=== PATIENT | female | born 1965 | race Caucasian/White ===

== ENCOUNTER 2019-09-08 23:31 | Inpatient (IN) | payer OTHER ==
[~2019-09-08] VITALS: Ht 167.6 cm; Wt 86.6 kg
--- NOTE | ~2019-09-08 | PROC ---
[address] [address] PROCEDURE REPORT Name: ROSA ELENA JOHNSON Room: [address] IN M.R.#: [id number] Admission: 09/09/19 Attend Phys: Geni Dawkins Discharge: 09/11/19 Date of : 67 Report #: [id number] THIS REPORT FOR: //name// cc: Steve Marr MD, Christopher J. MD ~ THIS REPORT FOR: //name// For GI report, please see the Provation report in Perceptive 7 content. By: [facility]2Medical Records Staff [facility] /LINO
[2019-09-08 23:38] VITALS: BP 115/51
[2019-09-08] MEDS ORDERED: ASA81BEC PO (23:41)
[2019-09-08 23:55] LABS: ABSOLUTE EOSINOPHILS 0.1 thou/uL (0.0-0.7); ABSOLUTE LYMPHOCYTES 1.5 thou/uL (0.8-5.3); ABSOLUTE MONOCYTES 0.4 thou/uL (0.0-1.2); ABSOLUTE NEUTROPHILS 3.5 thou/uL (1.6-8.1); BASOPHILS 0.6 %; EOSINOPHILS 1.6 %; LYMPHOCYTES 26.8 %; MCH 20.6 pg (26.0-34.0); MCHC 30.1 g/dL (28.0-37.0); MCV 68.5 fL (80.0-100.0); MPV 6.4 fl. (7.2-11.1); NUCLEATED RBCS 0 /100WBC; PLATELET COUNT* 332 thou/uL (150-400); RBC 1.56 mil/uL (4.20-5.00); WBC 5.4 thou/uL (4.0-11.0)
[2019-09-09] VITALS (13 sets, daily range): BP systolic 112–160; BP diastolic 46–89
[2019-09-09] LABS: HEMOGLOBIN 3.2 gm/dL (12.0-15.0)
[2019-09-09 00:01] LABS: HEMATOCRIT 10.7 % (37.0-47.0)
[2019-09-09 00:09] LABS: CALCIUM 8.4 mg/dL (8.5-10.1); CREATININE 0.8 mg/dL (0.6-1.3); POTASSIUM 3.5 mmol/L (3.5-5.1)
[2019-09-09 00:14] LABS: ALBUMIN 3.1 g/dL (3.4-5.0); TOTAL BILIRUBIN 0.2 mg/dL (<0.1-1.0); TOTAL PROTEIN 6.8 g/dL (6.4-8.2)
[2019-09-09 01:31] LABS: INR 1.2
[2019-09-09 02:56] LABS: HYPOCHROMASIA 3+; MICROCYTES 3+
[2019-09-09 02:57] LABS: ANISOCYTOSIS 1+; PLATELET ESTIMATE ADEQUATE
[2019-09-09 05:42] LABS: % SATURATION 5 % (20-39); IRON 23 ug/dL (50-175)
--- NOTE | 2019-09-09 06:52 | NUR ---
RECEIVED REPORT FROM ED NURSE GUNNER. PATIENT BROUGHT TO UNIT AT 0310. ASSESSMENT COMPLETED CHARTED. PATIENT ORIENTED TO UNIT, ROOM, BED, CALL-LIGHT, AND HOSPITAL POLICY. BED LOCKED AND IN LOWEST POSITION. FALL PRECAUTIONS IN PLACE FOR PATIENT SAFETY. CARDIAC MONITORING IN PLACE. CLWR.
[2019-09-09 10:24] LABS: HEMATOCRIT 15.8 % (37.0-47.0)
--- NOTE | 2019-09-09 14:47 | NUR ---
ICU rounds: HBG at 2, transfuse today. GI seeing. CM to attempt to assess tomorrow.
[2019-09-09 14:48] LABS: HEMATOCRIT 19.4 % (37.0-47.0); HEMOGLOBIN 6.2 gm/dL (12.0-15.0)
[2019-09-09 14:55] LABS: CALCIUM 7.6 mg/dL (8.5-10.1); CREATININE 0.6 mg/dL (0.6-1.3); POTASSIUM 3.9 mmol/L (3.5-5.1)
--- NOTE | 2019-09-09 18:36 | NUR ---
PT ADVANCED TOWARD GOAL OVERALL PLEASANT HAS RECEIVED 5 UNITS OF BLOOD WITH AN IRON TRANSFUSION EGD SCHEDULED FOR TOMORROW ASSESSED BY GOSIA LOAIZA TO [facility] PT RESTING IN BED
[2019-09-09 18:53] LABS: HEMOGLOBIN 7.5 gm/dL (12.0-15.0)
[2019-09-10] VITALS (56 sets, daily range): BP systolic 97–169; BP diastolic 43–89
[2019-09-10 04:15] LABS: ABSOLUTE BASOPHILS 0.1 thou/uL (0.0-0.2); ABSOLUTE EOSINOPHILS 0.1 thou/uL (0.0-0.7); ABSOLUTE LYMPHOCYTES 0.8 thou/uL (0.8-5.3); ABSOLUTE MONOCYTES 0.5 thou/uL (0.0-1.2); ABSOLUTE NEUTROPHILS 5.2 thou/uL (1.6-8.1); BASOPHILS 0.8 %; EOSINOPHILS 1.4 %; HEMATOCRIT 21.2 % (37.0-47.0); LYMPHOCYTES 12.3 %; MCH 24.9 pg (26.0-34.0); MCHC 32.9 g/dL (28.0-37.0); MPV 6.7 fl. (7.2-11.1); NUCLEATED RBCS 0 /100WBC; PLATELET COUNT* 283 thou/uL (150-400); POLYS 77.5 %; RDW-CV 22.6 % (10.5-14.5); WBC 6.7 thou/uL (4.0-11.0)
[2019-09-10 04:16] LABS: MCV 75.8 fL (80.0-100.0)
[2019-09-10 04:32] LABS: CALCIUM 7.7 mg/dL (8.5-10.1); CREATININE 0.7 mg/dL (0.6-1.3); POTASSIUM 3.9 mmol/L (3.5-5.1)
[2019-09-10 05:56] LABS: ANISOCYTOSIS 1+; POIKILOCYTOSIS 1+
[2019-09-10 05:57] LABS: POLYCHROMASIA Occasional
--- NOTE | 2019-09-10 06:11 | NUR ---
VITALS STABLE, AFEBRILE. PT REMAINS ON 2L O2 PER NC. PT COMPLAINS OF NAUSEA, PARTIAL RELIEF FROM MEDS. BMX1, SMALL, UOP 3200CC. ABLE TO GET UP TO THE COMMODE WITH NO DIFFICULTY. PT DENIES PAIN, SOB, DIZZINESS. ABLE TO SLEEP ON AND OFF THROUGH THE NIGHT. REMAINED NPO AFTER MIDNIGHT. CALL LIGHT WITHIN REACH. ABLE TO TURN SELF IN BED. WILL CONTINUE MONITORING.
--- NOTE | 2019-09-10 09:46 | NUR ---
RITA REMIANS A&O X 4, PLEASANT AND COOPERATIVE WITH CARES. DENIES PAIN. PATIENT STATES THAT SHE IS UNSURE IF SHE IS FEELING BETTER POST TRANSFUSION. HGB CONTINUES TO BE MONITORED. PATIENT STATES THAT SHE IS READY TO GO HOME. DR FLORES STATES THAT IF PATIENT'S HGB REMAINS STEADY THROUGH TOMORROW SHE MAYBE ABLE TO DISCHARGE TOMORROW. NO S/S OF BLEEDING. SOB WITH EXCERTION NOTED. NO FURTHER CONCERNS AT THIS TIME. WILL CONTINUE TO MONITOR AND CARE PER PLAN OF CARE.
--- NOTE | 2019-09-10 10:37 | NUR ---
PATIENT LEFT UNIT FOR GI LAB FOR EGD
--- NOTE | 2019-09-10 12:00 | NUR ---
ICU rounds: Pt transfused 5 units of blood yesterday. EGD today, biopsy taken, 2 new meds prescribed per GI, GI cleared. Per , anticipate dc tomorrow. Pt is A&O. Independent. Continues to work. No DME. No hx of or SNF. Goal is home at [facility]. Following.
[2019-09-10 12:13] LABS: HEMATOCRIT 21.2 % (37.0-47.0); HEMOGLOBIN 6.9 gm/dL (12.0-15.0); MCH 24.6 pg (26.0-34.0); MCHC 32.4 g/dL (28.0-37.0); MCV 75.7 fL (80.0-100.0); MPV 6.8 fl. (7.2-11.1); NUCLEATED RBCS 0 /100WBC; PLATELET COUNT* 291 thou/uL (150-400); WBC 6.4 thou/uL (4.0-11.0)
[2019-09-10 12:41] LABS: ABSOLUTE BASOPHILS 0.1 thou/uL (0.0-0.2); ABSOLUTE MONOCYTES 0.1 thou/uL (0.0-1.2); ABSOLUTE NEUTROPHILS 5.3 thou/uL (1.6-8.1); ANISOCYTOSIS 2+; PLATELET ESTIMATE ADEQUATE
--- NOTE | 2019-09-10 16:30 | NUR ---
PATIENT RETURNED FROM AFTER HAVING AN EGD AT 1055. PATIENT WAS STILL SLEEPING AT THIS TIME. PATIENT WAS PLACED BACK ON ALL MONITORS AND MONITORED CLOSELY FOR 1 HOUR. PATIENT TOLERATED PROCEDURE WELL. 1 UNIT PRBC TRANSFUSED AND PATIENT TOLERATED WELL. NO S/S OF REACTION OR SOB. PATIENT CURRENTLY RESTING AT THIS TIME. NO FURTHER CONCERNS AT THIS TIME. WILL CONTINUE TO MONITOR AND CARE PER PLAN OF CARE.
--- NOTE | 2019-09-10 19:39 | NUR ---
PATIENT TO ROOM 213 AT 1730. REPORT RECEIVED FROM ICU NURSE.
[2019-09-11 04:00] VITALS: BP 104/40; BP 110/36
[2019-09-11 04:50] LABS: ABSOLUTE BASOPHILS 0.1 thou/uL (0.0-0.2); ABSOLUTE EOSINOPHILS 0.2 thou/uL (0.0-0.7); ABSOLUTE LYMPHOCYTES 1.5 thou/uL (0.8-5.3); ABSOLUTE MONOCYTES 0.4 thou/uL (0.0-1.2); ABSOLUTE NEUTROPHILS 4.3 thou/uL (1.6-8.1); EOSINOPHILS 2.5 %; HEMATOCRIT 24.3 % (37.0-47.0); HEMOGLOBIN 7.9 gm/dL (12.0-15.0); LYMPHOCYTES 23.3 %; MCH 25.4 pg (26.0-34.0); MCHC 32.7 g/dL (28.0-37.0); MCV 77.7 fL (80.0-100.0); MONOCYTES 6.8 %; MPV 7.2 fl. (7.2-11.1); NUCLEATED RBCS 0 /100WBC; PLATELET COUNT* 279 thou/uL (150-400); POLYS 66.4 %; RBC 3.13 mil/uL (4.20-5.00); RDW-CV 21.9 % (10.5-14.5); WBC 6.4 thou/uL (4.0-11.0)
--- NOTE | 2019-09-11 05:26 | NUR ---
ASSUMED CARE OF PT AFTER REPORT AT 1930. PT A&OX4. VSS. PHYSICAL ASSESSMENT COMPLETED AND CHARTED. PT ON RA. PT TRACING SR ON TELE. PT UPADLIB TO RESTROOM. PT DENIES ANY PAIN OR DISCOMFORT. CALL LIGHT WITHIN REACH.
[2019-09-11 11:51] VITALS: BP 139/64
[2019-09-11] MEDS ORDERED: PROTONIX40 M1 PO (11:58)
[2019-09-11] MEDS ORDERED: CARAFATE 1 GM TA1 G1 PO (11:58)
[2019-09-11 13:00] VITALS: BP 139/64
--- NOTE | 2019-09-11 13:34 | NUR ---
ORDER RECEIVED TO DISCHARGE PATIENT HOME TO SELF CARE. MED REC, MEDICATIPN EDUCATION, STROKE EDUCATION AND NEE DFOR FOOLLOW UP EGD IN 2 MONTHS WITH [facility] AND WITH HER PCP IN 2 WEEKS. IV AND TELEMETRY PACK REMOVED. LULI IS AMBULATORY. ROOM AIR. AOX4. SHE WAS TAKEN BY WHEELCHAIR TO AWAITING CAR BY STAFF. DC TIME OF 13:15.
--- NOTE | 2019-09-11 14:07 | PATH ---
[address] [address] PATHOLOGY RPT PROCEDURE Name: ROSA ELENA JOHNSON Room: [address] IN M.R.#: [id number] Admission: 09/09/19 Date of : 67 Discharge: 09/11/19 Report #: [id number] Path Case #: [id number] [facility] Accession Number: [id number] . 01 Material submitted: . stomach - SUPERFICIAL GASTRIC LESIONS BIOPSY . 01 Clinician provided ICD-10: D62 E44.0 . 01 Clinical history: . Acute posthemorrhagic anemia, moderate protein calorie malnutrition. . 02 Diagnosis: Superficial gastric lesion(s), biopsy: - Severe chronic active gastritis with scattered Helicobacter pylori organisms, negative for granulomas and dysplasia. (NEGAR:pit 09/11/2019) . Special stain: H. pylori immuno OLT 09/11/2019 1133 Local . 02 Electronically signed: . Pramod Estrada MD, Pathologist NPI- [id number] . 01 Gross description: . Received in formalin labeled "Rosa Elena Johnson, superficial gastric lesion biopsy" is a 0.4 x 0.3 x 0.2 cm fragment of alvares-brown soft tissue. The specimen is submitted entirely in A1. ([facility]; 09/10/2019) [facility] 09/10/2019 1646 Local . 02 Pathologist provided ICD-10: K29.50, B96.81 . 02 CPT . 930353, P74401 Specimen Comment: A courtesy copy of this report has been sent to [phone] Specimen Comment: [phone] Specimen Comment: Report sent to ,DR VILLALTA / DR FLORES Performed at: [address] [id number] MD Ronaldo Diaz MD Phone: [phone] Performed at: [address] [address] PATHOLOGY RPT PROCEDURE Name: ROSA ELENA JOHNSON Room: [address] IN M.R.#: [id number] Admission: 09/09/19 Date of : 67 Discharge: 09/11/19 Report #: [id number] Path Case #: [id number] [address] [place] [id number] MD Pramod Estrada MD Phone: [phone]
--- NOTE | 2019-09-25 13:50 | CON ---
[address] [address] CONSULTATION Name: ROSA ELENA JOHNSON Yessy Room: [address] IN M.R.#: [id number] Admission: 09/09/19 Attend Phys: Geni Dawkins Discharge: 09/11/19 Date of : 67 Report #: [id number] THIS REPORT FOR: //name// cc: Steve Marr MD, Christopher J. MD ~ THIS REPORT FOR: //name// CC: Steve Campa DO DATE OF SERVICE: 09/09/2019 REQUESTING PHYSICIAN: Gary Campa DO REASON FOR CONSULT: Severe anemia. HISTORY OF PRESENT ILLNESS: This is a 54-year-old female who was asked by her primary care physician to get admitted to hospital since her hemoglobin found to be only 3. The patient denies any hematochezia or melena. She has been feeling very weak and fatigued. Her last colonoscopy being about a year ago. She denies any upper GI symptoms as she denies dyspepsia, GERD, dysphagia and odynophagia. PAST MEDICAL HISTORY: Significant for history of blood clots and anemia. ALLERGIES: No known drug allergy. MEDICATIONS: Please refer to MAR. SOCIAL HISTORY: The patient smokes 1 pack of cigarettes, but denies alcohol use. FAMILY HISTORY: Negative for GI malignancy. PHYSICAL EXAMINATION: VITAL SIGNS: Reveals blood pressure of 136/65, respirations are 13, pulse is 77, temperature 98.3. LUNGS: Clear. CARDIOVASCULAR: Regular. ABDOMEN: Soft, nontender, nondistended. Bowel sounds are positive. NEUROLOGIC: The patient is alert and oriented x 3. There is no focal neurologic deficits. LABORATORY DATA: Revealed sodium of 138, potassium 3.5, BUN is 11, [place] [address] CONSULTATION Name: ROSA ELENA JOHNSON Yessy Room: [address]#: [id number] Admission: 09/09/19 Attend Phys: Geni Dawkins Discharge: 09/11/19 Date of : 67 Report #: [id number] 0.8, glucose is 108. Liver functions are all within normal limit. WBC is 5.4, hemoglobin 3.2 and platelet is 332. IMAGING: CT of abdomen and pelvis was obtained on admission. There is a large hiatal hernia and some thickening in the distal esophagus. There is no evidence of any bowel obstruction or abnormality with the large colon. There is numerous diverticula noted in the colon. ASSESSMENT AND PLAN: The patient with severe anemia, history of colonoscopy a year ago, who has some abnormal CT suggestive of possible thickening in the distal esophagus and large hiatal hernia. We will go ahead and perform an upper endoscopy and make further recommendation based on finding. Meanwhile, the patient should be transfused to get her hemoglobin above 7. <ELECTRONICALLY SIGNED> By: Kevin Berrios MD 09/25/19 1350 [id number] [id number] Berrios MD /nt
== END 2019-09-11 13:15 | disposition home or self-care (01) | DRG 378 ==
LOC: M.ERS 23:31 → M.TBA-ER 09-09 01:58 → M.2W 09-09 01:58 → M.ICU 09-09 01:58 → M.2W 09-10 17:50
PROVIDERS: Emergency Medicine; Family Medicine; Internal Medicine Gastroenterology; ADMIT Internal Medicine; ATTEND Internal Medicine
PROC: 0DB68ZX Excision of Stomach, Via Natural or Artificial Opening Endoscopic, Diagnostic (ICD-10-PCS; principal; 2019-09-09)
PROC: 30233N1 Transfusion of Nonautologous Red Blood Cells into Peripheral Vein, Percutaneous Approach (ICD-10-PCS; principal; 2019-09-09)
DX: K25.4 Chronic or unspecified gastric ulcer with hemorrhage (principal); D62 Acute posthemorrhagic anemia; E44.0 Moderate protein-calorie malnutrition; K44.9 Diaphragmatic hernia without obstruction or gangrene; Z79.82 Long term (current) use of aspirin; Z79.899 Other long term (current) drug therapy; Z68.30 Body mass index [BMI] 30.0-30.9, adult; F17.210 Nicotine dependence, cigarettes, uncomplicated; K31.9 Disease of stomach and duodenum, unspecified

== ENCOUNTER → 2019-09-21 | Outpatient (CLI) | payer OTHER ==
[~2019-09-21] MED LIST: ASA81BEC PO; CARAFATE 1 GM TA1 G1 PO; PROTONIX40 M1 PO
== END ==
LOC: M.ULTRA 13:30
PROVIDERS: ATTEND Radiology Diagnostic Radiology
DX: I82.612 Acute embolism and thrombosis of superficial veins of left upper extremity (principal)

== ENCOUNTER → 2019-11-18 | Outpatient (CLI) | payer OTHER | LOC: M.LAB 10:12 | PROVIDERS: ATTEND Internal Medicine Gastroenterology | DX: Z01.812 Encounter for preprocedural laboratory examination (principal); Z11.59 Encounter for screening for other viral diseases; K29.70 Gastritis, unspecified, without bleeding; D64.9 Anemia, unspecified; A04.8 Other specified bacterial intestinal infections ==